=== PATIENT | female | born 1950 | race Caucasian/White ===

== ENCOUNTER 2017-05-02 07:45 | Emergency (ER) | payer MEDICARE, BC ==
[2017-05-02] MEDS ORDERED: PREMARIN0.3 MG PO (08:08)
[2017-05-02] MEDS ORDERED: LISINOPRIL20 MG PO (08:08)
[2017-05-02] MEDS ORDERED: GABAPENTIN100 MG PO (08:09)
[2017-05-02] MEDS ORDERED: HYDROCHLOROT12.5 M1 PO (08:09)
[2017-05-02] MEDS ORDERED: TRAMADOL HYDROC50 MG PO (09:17)
[2017-05-02] MEDS ORDERED: PREDNISONE50 MG PO (09:17)
[2017-05-02 09:25] VITALS: BP 157/70
== END 2017-05-02 09:31 | disposition home or self-care (01) ==
LOC: ED 07:45
DX: S73.102A Unspecified sprain of left hip, initial encounter (principal); I10 Essential (primary) hypertension; W19.XXXA Unspecified fall, initial encounter